=== PATIENT | female | born 1995 | race Caucasian/White ===

== ENCOUNTER 2017-07-14 22:59 | Outpatient (CLI) | payer MEDICAID ==
[~2017-07-14] VITALS: Ht 170.2 cm; Wt 67.2 kg
[2017-07-14 23:04] VITALS: BP 109/61
[2017-07-14 23:33] LABS: MICROSCOPIC AUTO
[2017-07-14 23:43] LABS: AMPHETAMINE SCREEN, URINE Negative (Negative); BARBITURATE SCREEN, URINE Negative (Negative); BENZODIAZEPINE SCREEN, URINE Negative (Negative); CANNABINOID SCREEN, URINE Positive (Negative); COCAINE SCREEN, URINE Negative (Negative); METHADONE SCREEN, URINE Negative (Negative); OPIATE SCREEN, URINE Negative (Negative)
== END 2017-07-15 00:05 | disposition home or self-care (01) ==
LOC: LDOP 22:59
PROVIDERS: ATTEND Obstetrics & Gynecology Female Pelvic Medicine and Reconstructive Surgery
DX: O26.893 Other specified pregnancy related conditions, third trimester (principal); R10.9 Unspecified abdominal pain; Z3A.31 31 weeks gestation of pregnancy
CPT/HCPCS: 59025; 80307; 81001; 87086; 99201; G0463

== ENCOUNTER 2018-05-20 09:34 | Emergency (ER) | payer SELFPAY ==
[~2018-05-20] VITALS: Ht 170.2 cm; Wt 53.0 kg
[~2018-05-20 09:34] MED LIST: IBUP-1223 PO; OXYC-302 PO
[2018-05-20 09:39] VITALS: BP 117/71
--- NOTE | 2018-05-20 10:09 | NUR ---
Patient/Caregiver given discharge instructions and they have confirmed that they understand the instructions. Patient ambulatory with steady gait.
== END 2018-05-20 10:11 | disposition home or self-care (01) ==
LOC: ED 09:55
DX: K08.89 Other specified disorders of teeth and supporting structures (principal)
CPT/HCPCS: 99283